=== PATIENT | female | born 1985 | race Caucasian/White ===

== ENCOUNTER 2020-07-07 19:42 | Emergency (ER) | payer SELFPAY ==
[2020-07-07 19:52] VITALS: BP 140/84; PULSE 84; RESP 16; TEMP 36; O2SAT 100
--- NOTE | 2020-07-07 20:41 | ED.FEMALEGU ---
HPI - Female Genitourinary General Chief complaint: Urogenital-Female Stated complaint: Left flank pain Time Seen by Provider: 07/07/20 20:41 History of Present Illness HPI Narrative: Left low back pain radiating to LLQ since this morning. Mild. Achy. Associated with urinary frequency for the past few days. No dyuria, hematuria, nausea, vomiting, fever. Related Data Allergies Allergy/AdvReac Type Severity Reaction Status Date / Time No Known Allergies Allergy Verified 07/07/20 22:19 Review of Systems Review of Systems: All systems reviewed & are unremarkable except as noted in HPI and below Exam Const: General: no acute distress and alert Orientation/consciousness: patient oriented x3 HENMT: Head: normal to inspection Neck: Neck: normal visual inspection Resp: Effort & Inspection: normal respiratory effort Auscultation: clear to auscultation bilaterally Cardio: Rate: regular rate Rhythm: regular rhythm GI: Inspection: non-distended GI Palp: Yes Soft to palpation and No Tenderness to palpation present (GI) Back/Spine/Pelvis: Back: no CVA tenderness Skin: General skin exam: normal color Neuro: General: patient oriented x3 Speech: normal speech Extrem: General: normal to inspection Course Vital Signs Vital signs: Vital Signs Temperature 36.0 C L 07/07/20 19:52 Pulse Rate 84 07/07/20 19:52 Respiratory Rate 16 07/07/20 19:52 Blood Pressure 140/84 07/07/20 19:52 Pulse Oximetry 100 07/07/20 19:52 Temperature 36.0 C L 07/07/20 19:52 Pulse Rate 68 07/07/20 22:22 Respiratory Rate 14 07/07/20 22:22 Blood Pressure 125/88 07/07/20 22:22 Pulse Oximetry 97 07/07/20 22:22 MDM - Female Genitourinary Differential Diagnosis Differential diagnosis: Likely urinary tract infection Lab Data Attestation: I reviewed the patient's lab results. Result diagrams: 07/07/20 21:13 Labs: Lab Results 07/07/20 07/07/20 Range/Units 21:13 21:13 WBC 8.8 (4.5-10.0) K/mm3 RBC 3.89 L (4.2-5.4) M/mm3 Hgb 11.6 L (12.0-15.0) g/dL Hct 35.4 L (37.0-47.0) % MCV 91.0 (80-100) fl MCH 29.8 (26-34) pg MCHC 32.8 (32-36) g/dl RDW 13.6 (11.5-14.5) % Plt Count 320 (150-375) k/mm3 MPV 11.6 H (7.4-10.4) fl Immature Gran % (Auto) 0.3 (0-0.5) % Neut % (Auto) 60.4 (45.5-73.1) % Lymph % (Auto) 31.2 (18.3-44.2) % [place] % (Auto) 5.9 (2.6-8.5) % Eos % (Auto) 1.4 (0-4.4) % Baso % (Auto) 0.8 (0.2-1.2) % Lymph # (Auto) 2.73 (0.9-3.2) K/mm3 [place] # (Auto) 0.5 (0.1-0.6) K/mm3 Eos # (Auto) 0.1 (0-0.3) K/mm3 Baso # (Auto) 0.1 (0.0-0.1) K/mm3 Abs Immat Gran (auto) 0.03 (0.00-0.031) K/mm3 Absolute Neuts (auto) 5.3 (1.3-6.7) K/mm3 Absolute Nucleated RBC 0.0 (0.0-0.012) K/mm3 Nucleated RBC % 0.0 (0.0-0.2) % Urine Color Straw (Yellow) Urine Appearance Clear (Clear) Urine pH 6.0 (5.0-9.0) Ur Specific [place] 1.004 (1.001-1.035) Urine Protein Negative (Negative) mg/dL Urine Glucose (UA) Negative (Negative) mg/dL Urine Ketones Negative (Negative) mg/dL Ur Blood (Man) 2+ H (Negative) Urine Nitrate Negative (Negative) Urine Bilirubin Negative (Negative) Urine Urobilinogen Negative (<2.0) mg/dL Leukocyte Esterase Rfl 3+ H (Negative) DOLORES/UL Urine RBC 3-5 H (0-2) /hpf Urine WBC 7-9 H /hpf Ur Squamous Epith Cells Moderate H (Few) /hpf Ur Transition Epith Cell Rare (None Seen) /hpf Discharge Plan Discharge Clinical Impression: Urinary tract infection Patient Disposition: Home, Self-Care Condition: Stable Instructions: Antibiotic Form, Urinary Tract Infection in Women (ED) Prescriptions: New nitrofurantoin monohyd/m-cryst [Macrobid] 100 mg capsule 100 mg PO Q12H 5 Days Qty: 10 RF: 0 Follow-up/Referrals: PHYSICIAN,REVISING CLERK [Primary Care Provider] - Vivek Ruano MD [Physician] -
[2020-07-07 21:21] LABS: Basophils Absolute Auto 0.1 K/mm3 (0.0-0.1); Basophils Percent Auto 0.8 % (0.2-1.2); Eosinophils Absolute Auto 0.1 K/mm3 (0-0.3); Eosinophils Percent Auto 1.4 % (0-4.4); Hematocrit 35.4 % (37.0-47.0); Hemoglobin 11.6 g/dL (12.0-15.0); Immature Granulocyte Absolute 0.03 K/mm3 (0.00-0.031); Immature Granulocyte Percent A 0.3 % (0-0.5); Lymphocytes Absolute Auto 2.73 K/mm3 (0.9-3.2); Lymphocytes Percent Auto 31.2 % (18.3-44.2); Mean Corpuscular HGB Conc 32.8 g/dl (32-36); Mean Corpuscular Hemoglobin 29.8 pg (26-34); Mean Platelet Volume 11.6 fl (7.4-10.4); Monocytes Absolute Auto 0.5 K/mm3 (0.1-0.6); Monocytes Percent Auto 5.9 % (2.6-8.5); Neutrophils Absolute Auto 5.3 K/mm3 (1.3-6.7); Neutrophils Percent Auto 60.4 % (45.5-73.1); Platelet Count Result 320 k/mm3 (150-375); Red Blood Count 3.89 M/mm3 (4.2-5.4); Red Cell Distribution Width 13.6 % (11.5-14.5); White Blood Count 8.8 K/mm3 (4.5-10.0)
[2020-07-07 21:25] LABS: Add Urine Microscopic? YES; Appearance Urine Clear (Clear); Bilirubin Urine Negative (Negative); Blood Urine 2+ (Negative); Color Urine Straw (Yellow); Glucose Urine UA Negative (Negative); Ketones Urine Negative (Negative); Leukocyte Esterase Ur 3+ LEU/UL (Negative); Nitrate Urine Negative (Negative); Protein Urine Negative (Negative); Squamous Epithelial Cell Urine Moderate /hpf (Few); Transitional Epi Cells Urine Rare /hpf (None Seen); Urobilinogen Urine Negative mg/dL (<2.0)
[2020-07-07 21:27] LABS: Specific Grav Ur 1.004 (1.001-1.035)
[2020-07-07] MEDS: NITROFURANTOIN MONOHYD MACROCR 100 MG CAP PO (22:20)
[2020-07-07 22:22] VITALS: BP 125/88; PULSE 68; RESP 14; O2SAT 97
== END 2020-07-07 22:27 | disposition home or self-care (01) ==
LOC: ANHED 22:11
PROVIDERS: Emergency Provider Emergency Medicine
DX: N39.0 Urinary tract infection, site not specified (principal)
CPT/HCPCS: 36415; 81001; 81025; 85025; 87077; 87086; 87088; 99283; A9270

== ENCOUNTER 2020-10-23 08:11 | Emergency (ER) | payer BC, SELFPAY ==
[2020-10-23 08:23] VITALS: BP 141/98; PULSE 91; RESP 16; TEMP 36.3; O2SAT 99
--- NOTE | 2020-10-23 08:38 | ED.URI ---
HPI - URI/Sore Throat General Chief Complaint: Upper Respiratory Infection Stated Complaint: cough/ear pain/sore throat Source: patient, RN notes reviewed and old records reviewed Mode of arrival: ambulatory Limitations: no limitations History of Present Illness HPI Narrative: 35-year-old female who presents to [facility] with complaints of cough, sore throat, earache, and nasal drainage with pressure to her sinus region for the past 3 days. Patient denies any shortness of breath but states that she has had such a cough that she felt like she was wheezing so she used her fathers inhaler which did seem to help. 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 Patient reports that her throat is sore especially with swallowing and she has had some clear nasal drainage with pressure to maxillary sinus region and pressure to her ear, denies any fevers chills or sweats or any body aches. Reports that she had been on Bystolic in the past for her blood pressure and diagnosis of pulmonary hypertension but she has been of this medication for some time with her blood pressure being normal, is elevated today at time of triage. MD elicited complaint: cough, sore throat, rhinorrhea and nasal congestion Treatments prior to arrival: cold medicine Related Data Home Medications Medication Instructions Recorded Confirmed No Home Medications 10/23/20 10/23/20 Allergies Allergy/AdvReac Type Severity Reaction Status Date / Time No Known Allergies Allergy Verified 07/07/20 22:19 Review of Systems Review of Systems: CONSTITUTIONAL: Denies fever, chills, or sweats. EYES: Denies visual changes, redness, or discharge. ENT: positive rhinorrhea, congestion, sore throat, positive for pressure to bilateral ears CARDIOVASCULAR: Denies chest pain, palpitations, or edema. RESPIRATORY: Positive cough no dyspnea, states noted some wheezing last night GASTROINTESTINAL: Denies abdominal pain, nausea, vomiting, or diarrhea. GENITOURINARY: Denies dysuria or hematuria. SKIN: Denies rash or itching. MUSCULOSKELETAL: Denies back pain, joint pain, or myalgia. NEUROLOGIC: Denies headache, numbness, or weakness. PSYCHIATRIC: Denies anxiety or depression. All systems reviewed & are unremarkable except as noted in HPI and below [facility] Past Medical History Medical History (Updated 10/23/20 @ 09:08 by Asmita Rollins NP) Pulmonary hypertension Surgical History Surgical History (Updated 10/23/20 @ 09:01 by Asmita Rollins NP) H/O tubal ligation History of hip surgery right Family History Family History (Updated 10/23/20 @ 09:02 by Asmita Rollins NP) Father COPD (chronic obstructive pulmonary disease) Heart disease Hypertension Social History Social History (Updated 10/23/20 @ 09:03 by Asmita Rollins NP) Smoking packs per day: 0.5 Smoking cigarettes per day: 10.0 Years smoked: 12 Smoking pack-years: 6.00 Smoking status: Former smoker Tobacco type: cigarettes and e-cigarettes/vaping Additional smoking assessment comments: quit cigarettes 6 months ago now vapes Alcohol use details: denies use Substance use type: does not use Living arrangements: with family Gender identity (if verbalized by the patient): Female Comments At time of signature, agree with nursing past medical, surgical, social and family history. There is no relevant family history pertinent to the presenting complaint Exam Narrative: GENERAL: Well-appearing, well-nourished, and in no acute distress. HEAD: Normocephalic, atraumatic. EYES: PERRLA and EOMI. ENT: Nares red swollen with clear rhinorrhea no epistaxis, sinus pressure stated. Mucous membranes moist.TM's normal with good light reflex, throat red with no lesion exudates or tonsil enlargement. post nasal drainage noted to back of throat. NE
[2020-10-25 18:57] LABS: SARS-CoV-2 RNA PCR Negative
== END 2020-10-23 09:14 | disposition home or self-care (01) ==
PROVIDERS: Emergency Provider Registered Nurse
DX: J06.9 Acute upper respiratory infection, unspecified (principal); R05 Cough; Z20.822 Contact with and (suspected) exposure to COVID-19
CPT/HCPCS: 87081; 87426; 87880; 99213; C9803; G0463; U0003; U0005

== ENCOUNTER 2022-01-14 11:59 | Emergency (ER) | payer BC, SELFPAY ==
[2022-01-14 12:07] VITALS: BP 137/85; PULSE 72; RESP 16; TEMP 36.2; O2SAT 100
--- NOTE | 2022-01-14 14:15 | ED.URI ---
HPI - URI/Sore Throat General Chief Complaint: Upper Respiratory Infection Stated Complaint: cough Time Seen by Provider: 01/14/22 14:15 Source: patient, RN notes reviewed and old records reviewed Mode of arrival: ambulatory Limitations: no limitations History of Present Illness HPI Narrative: 36-year-old female who presents to [facility] 6 day history of sore throat, body aches, which initially started last . Patient states over the weekend her symptoms seemed to get a little better and then now they have proceeded to increase with cough and congestion. Patient reports that she has taken DayQuil and Excedrin for her symptoms. MD elicited complaint: cough and sore throat Pertinent past history: asthma Onset (ago): day(s) (6) Treatments prior to arrival: other (Excedrin, DayQuil) Related Data Allergies Allergy/AdvReac Type Severity Reaction Status Date / Time No Known Allergies Allergy Verified 01/14/22 12:38 Review of Systems Review of Systems: CONSTITUTIONAL: Reports malaise, no chills, sweats, or known fever. EYES: Denies visual changes, redness, or discharge. ENT: Reports rhinorrhea, congestion, sinus pain, no otalgia positive for sore throat. CARDIOVASCULAR: Denies chest pain, palpitations, or edema. RESPIRATORY: Reports cough.? Denies dyspnea. GASTROINTESTINAL: Denies abdominal pain, nausea, vomiting, diarrhea SKIN: Denies rash or itching. MUSCULOSKELETAL: Reports myalgia. NEUROLOGIC: Denies headache. All systems reviewed & are unremarkable except as noted in HPI and below PMFSH Past Medical History Medical History (Updated 01/18/22 @ 11:45 by Asmita Rollins NP) Achilles tendinitis of left lower extremity Asthma Calcaneus fracture, left Pulmonary hypertension Surgical History Surgical History H/O tubal ligation History of hip surgery right Family History Family History (Updated 03/06/21 @ 15:02 by Fani Gan) Father COPD (chronic obstructive pulmonary disease) Heart disease Hypertension Other Asthma Social History Social History (Updated 03/06/21 @ 15:03 by Fani Gan) Smoking packs per day: 0.5 Smoking cigarettes per day: 10.0 Years smoked: 12 Smoking pack-years: 6.00 Smoking status: Current every day smoker (vaping) Tobacco type: e-cigarettes/vaping Additional smoking assessment comments: quit cigarettes 6 months ago now vapes Alcohol use details: denies use Substance use: never Substance use type: does not use Additional occupation/education comments: [employer] at [employer] Gender identity (if verbalized by the patient): Female Comments At time of signature, agree with nursing past medical, surgical, social and family history. There is no relevant family history pertinent to the presenting complaint Exam Narrative: GENERAL: Well-appearing, well-nourished, and in no acute distress. HEAD: Normocephalic EYES: PERRLA, conjunctivae clear ENT: Nares clear, turbinates edematous and erythematous, clear to light yellow discharge. Mucous membranes moist. TM pearly lal with dull light reflex bilaterally; no tragal tenderness. Oropharynx erythematous without lesions. Tonsils not enlarged and without exudate, no drooling, no hoarseness, no trismus, uvula midline. NECK: Supple. No lymphadenopathy CHEST: Clear to auscultation, breath sounds equal. No wheezing, rhonchi, rales, or stridor. No respiratory distress, speaks in full sentences. productive cough, SAO2 100% on room air HEART: Regular rate and rhythm. No murmur heard. SKIN: Warm, dry, no rash. NEURO: Alert and oriented x3. PSYCH: Normal mood and affect Course Course Emergency Course: Patient is aware of diagnosis, understands and agrees to treatment plan.? Anticipatory guidance given.? Patient agrees to follow-up as directed and is aware of reasons to seek care at the emergency department. [facility]
== END 2022-01-14 14:35 | disposition home or self-care (01) ==
PROVIDERS: Emergency Provider Registered Nurse
DX: J32.9 Chronic sinusitis, unspecified (principal); R05.1 Acute cough; F17.290 Nicotine dependence, other tobacco product, uncomplicated; J45.909 Unspecified asthma, uncomplicated; I27.20 Pulmonary hypertension, unspecified
CPT/HCPCS: 99213; G0463

== ENCOUNTER 2022-03-13 11:40 | Emergency (ER) | payer BC, SELFPAY ==
--- NOTE | ~2022-03-13 | XR_ITS ---
Clinical Indication: Chest pain, Covid 19 positive PA and lateral views of the chest: Comparison: None Findings: The lungs are clear, without evidence of focal consolidation or pleural effusion. Cardiome diastinal silhouette is within normal limits. Bones and soft tissues are unremarkable. Impression: Normal chest. Reviewed, dictated and finalized at [facility]. 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
[2022-03-13 11:51] VITALS: BP 126/88; PULSE 89; RESP 18; TEMP 36.4; O2SAT 100
[2022-03-13 11:52] VITALS: BP 126/88; PULSE 89; RESP 18; TEMP 36.4; O2SAT 100
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
--- NOTE | 2022-04-28 10:33 | ED.GENADULT ---
HPI - General Adult General Chief complaint: Upper Respiratory Infection Stated complaint: Headache/Chest Pain /Sore Throat Time Seen by Provider: 03/13/22 12:09 Source: patient, RN notes reviewed and old records reviewed Mode of arrival: ambulatory Limitations: no limitations Related Data Allergies Allergy/AdvReac Type Severity Reaction Status Date / Time No Known Allergies Allergy Verified 03/13/22 11:51 [facility] Past Medical History Medical History Achilles tendinitis of left lower extremity Asthma Calcaneus fracture, left Pulmonary hypertension Surgical History Surgical History H/O tubal ligation History of hip surgery right Family History Family History Father COPD (chronic obstructive pulmonary disease) Heart disease Hypertension Other Asthma Social History Social History Smoking packs per day: 0.5 Smoking cigarettes per day: 10.0 Years smoked: 12 Smoking pack-years: 6.00 Smoking status: Current every day smoker (vaping) Tobacco type: e-cigarettes/vaping Additional smoking assessment comments: quit cigarettes 6 months ago now vapes Alcohol use details: denies use Substance use: never Substance use type: does not use Living arrangements: with family Occupation/Education: occupation 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 [employer] Gender identity (if verbalized by the patient): Female Course Vital Signs Vital signs: Vital Signs Temperature 97.5 F L 03/13/22 11:51 Pulse Rate 89 03/13/22 11:51 Respiratory Rate 18 03/13/22 11:51 Blood Pressure 126/88 03/13/22 11:51 Pulse Oximetry 100 03/13/22 11:51 Oxygen Delivery Room Air 03/13/22 11:51 Temperature 97.5 F L 03/13/22 11:52 Pulse Rate 89 03/13/22 11:52 Respiratory Rate 18 03/13/22 11:52 Blood Pressure 126/88 03/13/22 11:52 Pulse Oximetry 100 03/13/22 11:52 Oxygen Delivery Room Air 03/13/22 11:52 Medical Decision Making Vital Signs Vital Signs: Vital Signs Temperature 97.5 F L 03/13/22 11:51 Pulse Rate 89 03/13/22 11:51 Respiratory Rate 18 03/13/22 11:51 Blood Pressure 126/88 03/13/22 11:51 Pulse Oximetry 100 03/13/22 11:51 Oxygen Delivery Room Air 03/13/22 11:51 Temperature 97.5 F L 03/13/22 11:52 Pulse Rate 89 03/13/22 11:52 Respiratory Rate 18 03/13/22 11:52 Blood Pressure 126/88 03/13/22 11:52 Pulse Oximetry 100 03/13/22 11:52 Oxygen Delivery Room Air 03/13/22 11:52 Lab Data Labs: Lab Results 03/13/22 Range/Units 12:00 POC SARS CoV-2 Ag Positive (Negative) Discharge Plan Discharge Clinical Impression: COVID-19 Patient Disposition: Home, Self-Care Condition: Stable Instructions: Antibiotic Form, How to Recover from COVID-19 at Home (ED) Additional Instructions: Increase fluids especially juices and water [id number] cough and cold medicine of your choice for your symptoms Tylenol or ibuprofen for any fever pain Zyrtec Claritin or Yennifer daily may include Sudafed is decongestant heat to the face 20-30 minutes 4-6 times a day for pain Salt water gargles, throat lozenges or throat sprays as desired If your symptoms persist, change or worsen significantly before you can contact your personal physician then please, without delay, go to the emergency department for further evaluation. Follow-up with PCP in 7-10 days or sooner if needed Follow up with PCP soon in regards to your blood pressure which is elevated above threshold for referral. Blood pressure above 120/80 may indicate pre-hypertension. Blood pressure minimal elevation 126/88. must quarantine for 5 days from time of symptoms and follow CDC quidelines COVID-19 DISCHARGE The following recommendati
== END 2022-03-13 12:54 | disposition home or self-care (01) ==
PROVIDERS: Emergency Provider Registered Nurse
DX: U07.1 COVID-19 (principal); F17.290 Nicotine dependence, other tobacco product, uncomplicated; J45.909 Unspecified asthma, uncomplicated; I27.20 Pulmonary hypertension, unspecified
CPT/HCPCS: 71046; 87081; 87426; 87804; 87880; 99213; C9803; G0463

== ENCOUNTER 2022-04-28 10:26 | Emergency (ER) | payer BC, SELFPAY ==
[2022-04-28 10:32] VITALS: BP 149/94; PULSE 80; RESP 14; TEMP 37.2; O2SAT 100
--- NOTE | 2022-04-28 10:52 | ED.CHESTPAIN ---
HPI - Chest Pain General Chief Complaint: Chest Pain Stated Complaint: cp Time Seen by Provider: 04/28/22 10:30 Source: patient, RN notes reviewed and old records reviewed Mode of arrival: ambulatory Limitations: no limitations History of Present Illness HPI narrative: 37-year-old female presents to the [facility] with complaints of left-sided chest pain, pressure, shortness of breath and nausea. Patient states it started as back pain last night, radiated into and localized into her left chest today. Reports numbness in her left arm as well as tingling. Pain is not reproducible MD complaint: chest pain Related Data Home Medications Medication Instructions Recorded Confirmed No Home Medications 04/28/22 04/28/22 Allergies Allergy/AdvReac Type Severity Reaction Status Date / Time No Known Allergies Allergy Verified 04/28/22 10:47 Review of Systems Review of Systems: All systems reviewed & are unremarkable except as noted in HPI and below Constitutional: Constitutional: Reports no additional constitutional complaints Eyes: Eyes: Reports no additional eye complaints ENT: Reports system reviewed and no additional complaints, except as documented Cardiovascular: Cardiovascular: Reports as per HPI, Reports chest pain, Reports chest pain at rest, Reports chest pain with activity and Reports dyspnea Respiratory: Respiratory: Reports no additional respiratory complaints, Denies chest congestion, Denies cough and Denies dyspnea Gastrointestinal: Gastrointestinal: Reports as per HPI, Denies abdominal pain, Reports nausea and Denies vomiting Musculoskeletal: Musculoskeletal: Reports no additional musculoskeletal complaints Integumentary/Breasts: Skin/Breast: Reports system reviewed and no additional complaints, except as docu Neurologic: Reports system reviewed and no additional complaints, except as documented Psychiatric: Psychiatric: Reports no additional psychiatric complaints Allergic/Immunologic: Allergic/Immunologic: Reports no additional allergic/immunologic complaints [facility] Past Medical History Medical History Achilles tendinitis of left lower extremity Asthma Calcaneus fracture, left Pulmonary hypertension Surgical History Surgical History H/O tubal ligation History of hip surgery right Family History Family History Father COPD (chronic obstructive pulmonary disease) Heart disease Hypertension Other Asthma Social History Social History Smoking packs per day: 0.5 Smoking cigarettes per day: 10.0 Years smoked: 12 Smoking pack-years: 6.00 Smoking status: Current every day smoker (vaping) Tobacco type: e-cigarettes/vaping Additional smoking assessment comments: quit cigarettes 6 months ago now vapes Alcohol use details: denies use Substance use: never Substance use type: does not use Living arrangements: with family Occupation/Education: occupation 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 There is no relevant family history pertinent to the patient complaint. Exam Const: General: cooperative, healthy appearing, comfortable, no acute distress, well developed, alert and well nourished Nutritional Appearance: well nourished Orientation/consciousness: patient oriented x3 Limitations: no limitations HENMT: Head: normal to inspection Ears: hearing grossly normal bilaterally and external ears normal Face/Nose/Sinus: Normal external nose present, Normal nares present, Normal nasal mucous membranes and turbinates present and normal facial exam Fac
--- NOTE | 2022-04-28 12:26 | ECG_ITS ---
Measurements Intervals [place] Rate: 81 P: 65 OK: 93 QRS: 38 QRSD: 82 T: 18 QT: 351 QTc: 409 Interpretive Statements SINUS RHYTHM WITH SINUS ARRHYTHMIA WITH SHORT OK INTERVAL POSSIBLE LEFT ATRIAL ENLARGEMENT BASELINE ARTIFACT- III, V1, V4 BORDERLINE ECG NO PREVIOUS ECG AVAILABLE FOR COMPARISON Electronically Signed On 04-28-2022 12:50:12 CDT by Silvino Sanchez D.O.
== END 2022-04-28 10:55 | disposition home or self-care (01) ==
PROVIDERS: Emergency Provider Nurse Practitioner
DX: R07.9 Chest pain, unspecified (principal); R06.02 Shortness of breath; F17.290 Nicotine dependence, other tobacco product, uncomplicated; J45.909 Unspecified asthma, uncomplicated; I27.20 Pulmonary hypertension, unspecified
CPT/HCPCS: 93005; 99213; G0463

== ENCOUNTER 2023-02-16 12:06 | Emergency (ER) | payer BC, SELFPAY ==
--- NOTE | 2023-02-16 12:14 | ED.URI ---
HPI - URI/Sore Throat General Chief Complaint: Upper Respiratory Infection Stated Complaint: Sore Throat/SOB Time Seen by Provider: 02/16/23 12:14 Source: patient Mode of arrival: ambulatory Limitations: no limitations History of Present Illness HPI Narrative: Patient is a 37-year-old female who presents with 4 days of cough, sore throat, congestion. Patient states her chest wall hurts when having coughing fits. Denies any fever, chills, nausea, vomiting, diarrhea. Has history of asthma as a child. Recently exposed to RSV. Related Data Allergies Allergy/AdvReac Type Severity Reaction Status Date / Time No Known Allergies Allergy Verified 02/16/23 13:15 Review of Systems Review of Systems: All systems reviewed & are unremarkable except as noted in HPI and below Constitutional: Constitutional: Denies body ache(s), Denies chills, Denies fatigue, Denies fever(s), Denies headache(s), Denies malaise and Denies weakness Eyes: Eyes: Denies blurry vision, Denies itchy eyes and Denies loss of vision ENT: Denies otalgia, Denies headache(s), Reports nasal congestion, Denies sinus pain and Denies sore throat Cardiovascular: Cardiovascular: Denies chest pain, Denies irregular heart rhythm and Denies dyspnea Respiratory: Respiratory: Reports cough and Denies dyspnea Gastrointestinal: Gastrointestinal: Denies abdominal pain, Denies diarrhea, Denies nausea and Denies vomiting Musculoskeletal: Musculoskeletal: Denies back pain, Denies myalgias and Denies arthralgias Integumentary/Breasts: Skin/Breast: Denies pruritus and Denies rash Neurologic: Denies headache(s), Denies loss of vision and Denies weakness Psychiatric: Psychiatric: Reports no additional psychiatric complaints Endocrine: Endocrine: Denies fatigue Allergic/Immunologic: Allergic/Immunologic: Denies itchy eyes PMFSH Past Medical History Medical History Achilles tendinitis of left lower extremity Asthma Calcaneus fracture, left Pulmonary hypertension Surgical History Surgical History H/O tubal ligation History of hip surgery right Family History Family History Father COPD (chronic obstructive pulmonary disease) Heart disease Hypertension Other Asthma Social History Social History Smoking packs per day: 0.5 Smoking cigarettes per day: 10.0 Years smoked: 12 Smoking pack-years: 6.00 Smoking status: Current every day smoker (vaping) Tobacco type: e-cigarettes/vaping Additional smoking assessment comments: quit cigarettes 6 months ago now vapes Alcohol use details: denies use Substance use: never Substance use type: does not use Living arrangements: with family Occupation/Education: occupation Additional occupation/education comments: [employer] 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 There is no relevant family history pertinent to the presenting complaint. Exam Const: General: cooperative, healthy appearing, comfortable, no acute distress and well nourished Nutritional Appearance: well nourished Orientation/consciousness: patient oriented x3 Limitations: no limitations HENMT: Head: normal to inspection, normocephalic and atraumatic Ears: hearing grossly normal bilaterally, external ears normal, TM's normal bilaterally, EAC's normal and no periauricular adenopathy Face/Nose/Sinus: Normal external nose present, Abnormal mucous membranes and turbinates present erythematous bilateral and diffuse, normal facial exam, sinuses nontender and face symmetric Face and sinus: normal facial exam, sinuses nontender and face symmetric Mouth: Yes Normal oral and palatal mucosa present, Ye
[2023-02-16 12:33] VITALS: BP 130/85; PULSE 69; RESP 16; TEMP 36.7; O2SAT 99
== END 2023-02-16 13:21 | disposition home or self-care (01) ==
PROVIDERS: Emergency Provider Nurse Practitioner Family; PCP Nurse Practitioner Family
DX: J06.9 Acute upper respiratory infection, unspecified (principal); F17.210 Nicotine dependence, cigarettes, uncomplicated; Z20.822 Contact with and (suspected) exposure to COVID-19
CPT/HCPCS: 87081; 87426; 87804; 87880; 99213; C9803; G0463

== ENCOUNTER 2023-04-22 11:20 | Emergency (ER) | payer BC, SELFPAY ==
[2023-04-22 11:51] VITALS: BP 116/67; PULSE 75; RESP 18; TEMP 36.6; O2SAT 100
--- NOTE | 2023-04-22 12:24 | ED.URI ---
HPI - URI/Sore Throat General Chief Complaint: Upper Respiratory Infection Stated Complaint: Sinus/Bodyaches Source: patient and RN notes reviewed Mode of arrival: ambulatory Limitations: no limitations History of Present Illness HPI Narrative: 38-year-old female presented for complaint of sore throat, headache, body aches, sinus pressure/congestion, cough, fever/chills. onset yesterday. Reports painful cough and green sputum. Taking Mucinex for symptoms. Denies sob, wheezing, n/v/d. Tested negative for COVID yesterday. MD elicited complaint: cough Related Data Allergies Allergy/AdvReac Type Severity Reaction Status Date / Time No Known Allergies Allergy Verified 04/22/23 11:36 Review of Systems Review of Systems: CONSTITUTIONAL: Endorses malaise, chills, sweats, fever EYES: Denies visual changes, redness, or discharge ENT: Reports rhinorrhea, congestion, sinus pain, otalgia, sore throat CARDIOVASCULAR: Denies chest pain, palpitations, edema RESPIRATORY: Reports cough, post nasal drainage. Denies dyspnea GASTROINTESTINAL: Denies abdominal pain, nausea, vomiting, diarrhea SKIN: Denies rash or itching MUSCULOSKELETAL: Endorses myalgia PMFSH Past Medical History Medical History Achilles tendinitis of left lower extremity Asthma Calcaneus fracture, left Pulmonary hypertension Surgical History Surgical History H/O tubal ligation History of hip surgery right Family History Family History Father COPD (chronic obstructive pulmonary disease) Heart disease Hypertension Other Asthma Social History Social History Smoking packs per day: 0.5 Smoking cigarettes per day: 10.0 Years smoked: 12 Smoking pack-years: 6.00 Smoking status: Current every day smoker (vaping) Tobacco type: e-cigarettes/vaping Additional smoking assessment comments: quit cigarettes 6 months ago now vapes Alcohol use details: denies use Substance use: never Substance use type: does not use Living arrangements: with family Occupation/Education: occupation Additional occupation/education comments: [employer] at [employer] Gender identity (if verbalized by the patient): Female Exam Narrative: GENERAL: Ill-appearing, nontoxic no acute distress. HEAD: Normocephalic EYES: PERRLA, conjunctivae clear ENT: Mucous membranes moist. TMs pearly lal with dull light reflex bilaterally; no tragal tenderness. Oropharynx not erythematous without lesions or exudate, no drooling, no hoarseness, no trismus, uvula midline. No tripod positioning, muffled voice, soft palate or pharyngeal wall bulging NECK: Supple. No lymphadenopathy CHEST: Clear to auscultation, breath sounds equal. No wheezing, rhonchi, rales, or stridor. No respiratory distress, speaks in full sentences. HEART: Regular rate and rhythm. No murmur heard. SKIN: Warm, dry, no rash. NEURO: Alert and oriented x3. PSYCH: Normal mood and affect Course Course Emergency Course: Patient is aware of diagnosis, understands and agrees to treatment plan. Anticipatory guidance given. Patient agrees to follow-up as directed and is aware of reasons to seek care at the emergency department. Portions of this record may have been created with voice recognition software Level of Care: Express Care Visit Vital Signs Vital signs: Vital Signs Oxygen Delivery Room Air 04/22/23 11:50 Temperature 97.8 F 04/22/23 11:51 Pulse Rate 75 04/22/23 11:51 Respiratory Rate 18 04/22/23 11:51 Blood Pressure 116/67 04/22/23 11:51 Pulse Oximetry 100 04/22/23 11:51 Oxygen Delivery Room Air 04/22/23 11:51 reviewed MDM - URI/Sore Throat MDM Narrative Medical decision making narrative: Negative flu and strep reviewed with patient. Xavi
== END 2023-04-22 12:28 | disposition home or self-care (01) ==
PROVIDERS: Emergency Provider Nurse Practitioner Family; PCP Nurse Practitioner Family
DX: B34.9 Viral infection, unspecified (principal); F17.290 Nicotine dependence, other tobacco product, uncomplicated; J45.909 Unspecified asthma, uncomplicated
CPT/HCPCS: 87081; 87804; 87880; 99213; G0463

== ENCOUNTER 2023-11-07 11:03 | Emergency (ER) | payer BC, SELFPAY ==
--- NOTE | ~2023-11-07 | XR_ITS ---
EXAMINATION: XR chest 2V DATE: 11/07/2023 12:04 INDICATION: Nonproductive cough. TECHNIQUE: Frontal and lateral views of the chest were obtained. COMPARISON: Chest 2 views 03/13/2022 FINDINGS: There is no pneumonia, pleural effusion, or pneumothorax. The heart size is normal. There i s an old healed right rib fracture. IMPRESSION: 1. No acute cardiopulmonary disease. Reviewed, dictated and finalized at location A.
[2023-11-07 11:14] VITALS: BP 133/83; PULSE 74; RESP 16; TEMP 37.1; O2SAT 100
[2023-11-07 11:19] VITALS: BP 133/83; PULSE 74; RESP 16; TEMP 37.1; O2SAT 100
--- NOTE | 2023-11-07 11:45 | ED.GENADULT ---
HPI - General Adult General Chief complaint: Upper Respiratory Infection Stated complaint: Sore Throat Source: patient Mode of arrival: ambulatory Limitations: no limitations History of Present Illness HPI narrative: Patient presents for evaluation of sick symptoms for last 4 days. Symptoms include sinus congestion, postnasal drainage, cough, mild shortness of breath, subjective hot flashes, nausea, diarrhea. Denies any vomiting or chills. She has taken Excedrin, ibuprofen, Mucinex, and some [id number] cough medication without considerable improvement thereafter. No recent sick contacts to her knowledge. She does vape. Related Data Allergies Allergy/AdvReac Type Severity Reaction Status Date / Time No Known Allergies Allergy Verified 11/07/23 11:14 Review of Systems Review of Systems: CONSTITUTIONAL: Reports hot flashes. Denies chills, or sweats. EYES: Denies visual changes, redness, or discharge. ENT: reports sinus congestion, postnasal drainage, sore throat. CARDIOVASCULAR: Denies chest pain, palpitations, or edema. RESPIRATORY: Reports cough and shortness of GASTROINTESTINAL: reports nausea, vomiting, diarrhea GENITOURINARY: Denies dysuria or hematuria. SKIN: Denies rash or itching. MUSCULOSKELETAL: Denies back pain, joint pain, or myalgia. NEUROLOGIC: Denies headache, numbness, dizziness, or weakness. PSYCHIATRIC: Denies anxiety or depression. [facility] Past Medical History Medical History Achilles tendinitis of left lower extremity Asthma Calcaneus fracture, left Pulmonary hypertension Surgical History Surgical History H/O tubal ligation History of hip surgery right Family History Family History Father COPD (chronic obstructive pulmonary disease) Heart disease Hypertension Other Asthma Social History Social History Smoking packs per day: 0.5 Smoking cigarettes per day: 10.0 Years smoked: 12 Smoking pack-years: 6.00 Smoking status: Current every day smoker (vaping) Tobacco type: e-cigarettes/vaping Additional smoking assessment comments: quit cigarettes 6 months ago now vapes Alcohol use details: denies use Substance use: never Substance use type: does not use Living arrangements: with family Occupation/Education: occupation Additional occupation/education comments: [employer] EX[employer] at [employer] Gender identity (if verbalized by the patient): Female Exam Narrative: GENERAL: Well-appearing, well-nourished, and in no acute distress. HEAD: Normocephalic, atraumatic. EYES: PERRLA and EOMI. ENT: Nares clear, no rhinorrhea or epistaxis. Mucous membranes moist. Oropharynx without tonsillar hypertrophy exudate or other lesions. Bilateral TMs pearly lal nonbulging NECK: Supple. No adenopathy or masses. No carotid bruits or JVD CHEST: Diminished lung sounds bilaterally. No adventitious lung sounds. HEART: Regular rate and rhythm. No murmur heard. Normal peripheral pulses. ABDOMEN: Soft, nontender, nondistended, normal active bowel sounds. EXTREMITIES: Normal range of motion. No edema. SKIN: Warm, dry, no rash. NEURO: No focal deficits. Alert and oriented x3. PSYCH: Normal mood and affect. Course Course Emergency Course: This is a 38-year-old female who presented for evaluation of sick symptoms. COVID and influenza negative. Chest x-ray normal. Exam is consistent with acute viral syndrome. Increase hydration. [id number] agents for symptom management. Advised on smoking cessation. Will dc with prednisone and albuterol. Follow up with primary provider. Go to the ER for worsening symptoms. Pt in agreement with plan of care. Level of Care: Express Care Visit Vital Signs Vital signs: Vital Signs Tem
[2023-11-07 11:48] LABS: EDCOVIDSCREEN Negative (Negative); EDINFLUASCREEN Negative (Negative); EDINFLUBSCREEN Negative (Negative); EDSTREPNEGPOS1 Negative (Negative)
== END 2023-11-07 12:34 | disposition home or self-care (01) ==
PROVIDERS: Emergency Provider Nurse Practitioner; PCP Nurse Practitioner Family
DX: J06.9 Acute upper respiratory infection, unspecified (principal); Z20.822 Contact with and (suspected) exposure to COVID-19; F17.290 Nicotine dependence, other tobacco product, uncomplicated; J45.909 Unspecified asthma, uncomplicated; I27.20 Pulmonary hypertension, unspecified
CPT/HCPCS: 71046; 87081; 87426; 87804; 87880; 99213; G0463

== ENCOUNTER → 2023-12-10 11:15 | Outpatient (CLI) | payer BC, SELFPAY ==
--- NOTE | ~2023-12-10 | XR_ITS ---
XR hip RT min 2V 12/10/2023 11:28 Indication: Right hip pain Procedure: 2 views right hip Comparison: No prior studies for comparison. Findings: No acute fracture, subluxation or dislocation. There is internal fixation of the right stephen pelvis with sideplate and multiple screws. There is a healed acetabular fracture. Impression: 1: No acute bone or joint abnormality. Reviewed, dictated and finalized at location B. Impression: 1: No acute bone or joint abnormality.
--- NOTE | ~2023-12-10 | XR_ITS ---
XR hip LT min 2V 12/10/2023 11:28 Indication: Left hip pain Procedure: 2 views left hip Comparison: No prior studies for comparison. Findings: There is anatomic alignment. No fracture, subluxation or dislocation. There is partially vi sualized hardware in the right hemipelvis.. Impression: 1: No acute bone or joint abnormality. Reviewed, dictated and finalized at location B. Impression: 1: No acute bone or joint abnormality.
== END ==
LOC: EXPCRAD 11:19
PROVIDERS: PCP Nurse Practitioner Family; Visit Provider Nurse Practitioner Family
DX: M25.552 Pain in left hip (principal); M25.551 Pain in right hip
CPT/HCPCS: 73502

== ENCOUNTER 2024-03-10 12:02 | Emergency (ER) | payer BC, SELFPAY ==
--- NOTE | ~2024-03-10 | XR_ITS ---
EXAMINATION: XR chest 2V DATE: 03/10/2024 12:39 INDICATION: 4 days of productive cough TECHNIQUE: PA and lateral views of the chest were obtained. COMPARISON: Chest radiograph dated 11/07/2023 FINDINGS: The lungs remain clear with no focal airspace opacities, pulmonary edema, pleural effusion or pneumot horax. The cardiomediastinal silhouette is normal. Old healed fracture deformities the right clavicle and posterior right second rib. IMPRESSION: 1. No acute cardiopulmonary disease. Reviewed, dictated and finalized at location A. [employer] COMM[employer]
--- NOTE | 2024-03-10 12:08 | ED.URI ---
HPI - URI/Sore Throat General Chief Complaint: Upper Respiratory Infection Stated Complaint: cough, something sitting on chest ,HX asthma Time Seen by Provider: 03/10/24 12:05 Source: patient Mode of arrival: ambulatory Limitations: no limitations History of Present Illness HPI Narrative: Patient is a 38-year-old female who presents with worsening cough the past 4 days and burning sensation in chest. Patient was diagnosed with influenza 02/21 and finished Tamiflu. Patient denies any fever, congestion, sore throat, ear pain, fever, chills, nausea, vomiting, diarrhea. Patient vapes daily. Patient has PCP appointment in 3 days. Related Data Home Medications ?Medication ?Instructions ?Recorded ?Confirmed ?Last Taken ?Type ergocalciferol (vitamin D2) 1,250 1,250 mcg PO WEEKLY 03/10/24 03/10/24 Unknown History mcg (50,000 unit) capsule Allergies Allergy/AdvReac Type Severity Reaction Status Date / Time No Known Allergies Allergy Verified 03/10/24 12:29 Review of Systems Review of Systems: All systems reviewed & are unremarkable except as noted in HPI and below Constitutional: Constitutional: Denies body ache(s), Denies chills, Denies fatigue, Denies fever(s), Denies headache(s), Denies malaise and Denies weakness Eyes: Eyes: Denies blurry vision, Denies itchy eyes and Denies loss of vision ENT: Denies otalgia, Denies headache(s), Denies nasal congestion, Denies sinus pain and Denies sore throat Cardiovascular: Cardiovascular: Denies chest pain, Denies irregular heart rhythm and Denies dyspnea Respiratory: Respiratory: Reports cough and Denies dyspnea Gastrointestinal: Gastrointestinal: Denies abdominal pain, Denies diarrhea, Denies nausea and Denies vomiting Musculoskeletal: Musculoskeletal: Denies back pain, Denies myalgias and Denies arthralgias Integumentary/Breasts: Skin/Breast: Denies pruritus and Denies rash Neurologic: Denies headache(s), Denies loss of vision and Denies weakness Psychiatric: Psychiatric: Reports no additional psychiatric complaints Endocrine: Endocrine: Denies fatigue Allergic/Immunologic: Allergic/Immunologic: Denies itchy eyes PMFSH Past Medical History Medical History Asthma Achilles tendinitis of left lower extremity Calcaneus fracture, left Pulmonary hypertension Surgical History Surgical History H/O tubal ligation History of hip surgery right Family History Family History Father COPD (chronic obstructive pulmonary disease) Heart disease Hypertension Other Asthma Social History Social History Smoking packs per day: 0.5 Smoking cigarettes per day: 10.0 Years smoked: 12 Smoking pack-years: 6.00 Smoking status: Current every day smoker (vaping) Tobacco type: e-cigarettes/vaping Additional smoking assessment comments: quit cigarettes 6 months ago now vapes Alcohol use details: denies use Substance use: never Substance use type: does not use Living arrangements: with family Occupation/Education: occupation 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 There is no relevant family history pertinent to the presenting complaint. Exam Const: General: cooperative, healthy appearing, comfortable, no acute distress and well nourished Nutritional Appearance: well nourished Orientation/consciousness: patient oriented x3 Limitations: no limitations HENMT: Head: normal to inspection, normocephalic and atraumatic Ears: hearing grossly normal bilaterally, external ears normal, TM's normal bilaterally, EAC's normal and no periauricular adenopathy Face/Nose/Sinus: Normal external nose present, Normal nasal mucous membranes and turbinates present, normal facial exam, sinuses nontender and face symmetric Face and sinus: normal facial exam, sinuses nontender and face symmetric Mouth: Yes Normal oral and palatal mucosa present, Yes lip normal, Yes tongue normal, Yes Normal salivary glands and ducts present, Yes oropharynx normal and Yes moist mucous membranes Teeth and gingiva: dentition normal Throat: posterior oropharynx normal, tonsils normal and uvula midline Eyes: General: appearance normal, both eyes and all related structures Alignment and Position: alignment normal and position normal Periorbital: periorbital findings normal Eyelids: eyelids normal Pupils: Equal, round and reactive pupils present Neck: Neck: normal visual inspection, full ROM, no lymphadenopathy and supple Chest: Chest palpation & inspection: normal inspection of the chest and normal palpation of entire chest wall Resp: Effort & Inspection: normal respiratory effort, able to speak in complete sentences and Actively coughing dry Auscultation: clear to auscultation bilaterally, no crackles, no rales, no rhonchi and no wheezes Cardio: Rate: regular rate Rhythm: regular rhythm Heart sounds: S1 normal heart sound present and S2 normal heart sound present GI: Inspection: normal to inspection Skin: General skin exam: normal color and no rashes or lesions noted Neuro: General: patient oriented x3 and moves all extremities Cranial nerves: Yes Equal, round and reactive pupils present Speech: normal speech Gait exam (Neuro): Normal gait present Extrem: General: normal to inspection, full ROM and no edema Psych: Appearance: grossly normal and well kempt Mental Status: mental status grossly normal Speech and movement: Normal speech and movement present Affect: normal affect Attitude: cooperative Thought process: Normal thought process present Course Course Emergency Course: Discharge instructions reviewed with patient, as well as provided in writing per nursing staff. The instructions also include specific and strict return/GO TO THE ER as well as f/u information. All questions have been answered, and the patient deny any further questions with discharge and discharge plan. Portions of this record may have been created with voice recognition software Level of Care: Express Care Visit Vital Signs Vital signs: Vital Signs Temperature 36.3 C L 03/10/24 12:14 Pulse Rate 91 03/10/24 12:14 Respiratory Rate 18 03/10/24 12:14 Blood Pressure 135/83 03/10/24 12:14 Pulse Oximetry 100 03/10/24 12:14 Oxygen Delivery Room Air 03/10/24 12:14 Temperature 36.3 C L 03/10/24 12:14 Pulse Rate 91 03/10/24 12:14 Respiratory Rate 18 03/10/24 12:14 Blood Pressure 135/83 03/10/24 12:14 Pulse Oximetry 100 03/10/24 12:14 Oxygen Delivery Room Air 03/10/24 12:14 Reviewed MDM - URI/Sore Throat MDM Narrative Medical decision making narrative: Discussed findings with patient. Patient is to keep PCP appointment on Wednesday. Pt well hydrated appearing, in no respiratory distress, hemodynamically stable. Recommend supportive care. The patient is stable at time of discharge the clinical impression was discussed and the patient was given the opportunity to ask questions, which were addressed as completely as possible given the information available at present. Anticipatory guidance and return to care precautions were discussed and the importance of primary care follow-up was stressed and encouraged. The patient voiced understanding of the plan, indications to return, and the need for follow-up. Differential diagnosis considered: Montero virus, strep pharyngitis, allergic rhinitis, upper respiratory tract infection, sinusitis, rhinosinusitis, nasopharyngitis. viral pharyngitis, otitis media, otitis externa, otitis effusion, foreign body, cerumen impaction, viral syndrome, and influenza.? Exam findings show no acute concerns or changes; patient is non-toxic appearing and is in no distress.? Patient is appropriate for outpatient treatment and follow-up.? Medical Records Attestation: I reviewed the patient's medical records. Imaging Data Radiologist's impression: EXAMINATION: XR chest 2V DATE: 03/10/2024 12:39 INDICATION: 4 days of productive cough TECHNIQUE: PA and lateral views of the chest were obtained. COMPARISON: Chest radiograph dated 11/07/2023 FINDINGS: The lungs remain clear with no focal airspace opacities, pulmonary edema, pleural effusion or pneumothorax. The cardiomediastinal silhouette is normal. Old healed fracture deformities the right clavicle and posterior right second rib. IMPRESSION: 1. No acute cardiopulmonary disease. Discharge Plan Discharge Clinical Impression: Acute purulent bronchitis Patient Disposition: Home, Self-Care Condition: Stable Instructions: Acute Bronchitis (ED) Additional Instructions: Take antibiotic as prescribed. Take steroids per package instruction. Use Tessalon Perles as needed for cough. Other symptomatic treatments include: -Alternate Tylenol and Motrin per package directions for fever or pain: Tylenol 650-1000mg by mouth every 4-6 hours. Do not exceed 4000mg in 24 hours. Advil (Ibuprofen) 600 mg by mouth every 6 hours. Do not exceed 2400mg in 24 hours. 8 AM: Tylenol 11 AM: Ibuprofen 2 PM: Tylenol 5 PM: Ibuprofen 8 PM: Tylenol 11 PM: Ibuprofen 2 AM: Tylenol 5 AM: Ibuprofen -Antihistamine medication such as Benadryl at night and Zyrtec/Claritin/Yennifer during the day can help improve symptoms. -Use Flonase twice a day for 5 days then daily to help reduce the inflammation and dry up your sinuses. -You can also use Sudafed or Mucinex. Be sure to drink plenty of water with these medications at least 8 ounces with every dose and it is important to drink 8 to 10 glasses of water per day. Water is a natural decongestant -Eat and drink things that are easy to swallow, like tea or soup, or popsicles. -Oral rinses such as: Salt water gargles and/or may use topical anesthetic (eg. Chloraseptic spray) or lozenges to relieve dryness or throat pain). -Frequent hand washing or hand airplane pilot helper is one of the best ways to prevent spread of infection. -Using a vaporizer or humidifier at night will also help thin secretions and help with coughing up phlegm. -Follow up with primary care provider in 3-5 days if condition is not improving - For new or worsening symptoms go directly to the nearest ER Patient Language: Maltese Prescriptions: New azithromycin 250 mg tablet See Rx Instructions .ROUTE .COMPLEX Qty: 6 0RF Rx Instructions: For 250 mg dose pack: take 500 mg today (day 1), then 250 mg for 4 days (days 2-5) benzonatate 100 mg capsule 100 mg PO BID PRN (Reason: cough) Qty: 14 0RF methylprednisolone [Medrol ([place])] 4 mg tablets,dose pack See Rx Instructions .ROUTE .COMPLEX Qty: 21 0RF Rx Instructions: orally per package directions No Action ergocalciferol (vitamin D2) 1,250 mcg (50,000 unit) capsule 1,250 mcg PO WEEKLY Follow-up/Referrals: Linda,AMY Webb [Primary Care Provider] - 3 Days Stand Alone Forms: Work/School Release IP Time of Disposition: 12:58
[2024-03-10 12:14] VITALS: BP 135/83; PULSE 91; RESP 18; TEMP 36.3; O2SAT 100
== END 2024-03-10 13:07 | disposition home or self-care (01) ==
PROVIDERS: Emergency Provider Nurse Practitioner Family; PCP Nurse Practitioner Family
DX: J20.9 Acute bronchitis, unspecified (principal); F17.290 Nicotine dependence, other tobacco product, uncomplicated
CPT/HCPCS: 71046; 99213; G0463

== ENCOUNTER 2024-11-11 18:02 | Emergency (ER) | payer SELFPAY ==
[2024-11-11 18:12] VITALS: BP 140/88; PULSE 74; RESP 18; TEMP 36.5; O2SAT 97
--- NOTE | 2024-11-11 18:15 | ED_ITS ---
HPI - General Adult General Chief complaint: Wound/Laceration Stated complaint: Left Foot Toe Pain Time Seen by Provider: 11/11/24 18:15 Source: patient, RN notes reviewed and old records reviewed Mode of arrival: ambulatory Limitations: no limitations History of Present Illness HPI narrative: 39 year old female who presents to [facility] with complaints of 1 week duration of swelling and redness to the left great toe along anterior nail bed with some whitish tissue area noted, no purulent drainage noted at this time but patient reports some purulent drainage noted yesterday. Patient reports that she has been soaking her toe in Epsom salt and warm water a couple of times daily for the past 2 days. Patient reports no injury to her toe or any known fevers. MD complaint: pain and swelling to the left great toe at the nail bed Onset (ago): week(s) (1) Location: left (left great toe and proximal nail bed, no purulent drainage noted at this time.) and lower extremity Severity scale (1-10): 8 Quality: other (throbbing) Treatments prior to arrival: other (has been soaking) Related Data Allergies Allergy/AdvReac Type Severity Reaction Status Date / Time No Known Allergies Allergy Verified 11/11/24 18:14 Review of Systems Review of Systems: CONSTITUTIONAL: Denies fever, chills, or sweats. CARDIOVASCULAR: Denies chest pain, palpitations, or edema. RESPIRATORY: Denies cough or dyspnea. GASTROINTESTINAL: Denies abdominal pain, nausea, vomiting SKIN: Reports redness and swelling with pain to the proximal area of left great toe nail bed., reports some purulent drainage, none noted at present time, whitish area of tissue noted at nail bed with some induration MUSCULOSKELETAL: Denies myalgia. NEUROLOGIC: Denies headache, numbness All systems reviewed & are unremarkable except as noted in HPI and below PMFSH Past Medical History Medical History Asthma Achilles tendinitis of left lower extremity Calcaneus fracture, left Pulmonary hypertension Surgical History Surgical History H/O tubal ligation History of hip surgery right Family History Family History Father COPD (chronic obstructive pulmonary disease) Heart disease Hypertension Other Asthma Social History Social History Smoking packs per day: 0.5 Smoking cigarettes per day: 10.0 Years smoked: 12 Smoking pack-years: 6.00 Smoking status: Current every day smoker (vaping) Tobacco type: e-cigarettes/vaping Additional smoking assessment comments: quit cigarettes 6 months ago now vapes Alcohol use details: denies use Substance use: never Substance use type: does not use Living arrangements: with family Occupation/Education: occupation 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 There is no relevant family history pertinent to the presenting complaint Exam Narrative: GENERAL: Well-appearing, well-nourished, and in no acute distress. HEAD: Normocephalic, atraumatic. EYES: PERRLA and EOMI. ENT: Nares clear, no rhinorrhea or epistaxis. Mucous membranes moist. NECK: Supple. no lymphadenopathy CHEST: Clear to auscultation. No respiratory distress.SAO2 97% on room air HEART: Regular rate and rhythm. No murmur heard. Normal peripheral pulses. ABDOMEN: Soft, nontender, nondistended, normal active bowel sounds. EXTREMITIES: Normal range of motion. No edema. SKIN: Warm, dry. Erythema, induration, tenderness, warmth to the proximal aspect of her left great toe nail bed with whitish tissue area, no present drainage noted, patient does report some purulent drainage. NEURO: No focal deficits. Alert and oriented x3. Course Course Emergency Course: Patient is aware of diagnosis, understands and agrees to treatment plan. Anticipatory guidance given. Patient agrees to follow-up as directed and is aware of reasons to seek care at the emergency department. Portions of this record may have been created with voice recognition software Level of Care: Express Care Visit Vital Signs Vital signs: Vital Signs Temperature 36.5 C 11/11/24 18:12 Pulse Rate 74 11/11/24 18:12 Respiratory Rate 18 11/11/24 18:12 Blood Pressure 140/88 11/11/24 18:12 Pulse Oximetry 97 11/11/24 18:12 Oxygen Delivery Room Air 11/11/24 18:12 Temperature 36.5 C 11/11/24 18:12 Pulse Rate 74 11/11/24 18:12 Respiratory Rate 18 11/11/24 18:12 Blood Pressure 140/88 11/11/24 18:12 Pulse Oximetry 97 11/11/24 18:12 Oxygen Delivery Room Air 11/11/24 18:12 Reviewed Medical Decision Making Differential Diagnosis Differential Diagnosis: swelling and pain of left great toe, paronychia left great toe, abscess nail bed, cellulitis Medical Records Medical records reviewed: Yes I reviewed the external patient's medical records. Vital Signs Vital Signs: Vital Signs Temperature 36.5 C 11/11/24 18:12 Pulse Rate 74 11/11/24 18:12 Respiratory Rate 18 11/11/24 18:12 Blood Pressure 140/88 11/11/24 18:12 Pulse Oximetry 97 11/11/24 18:12 Oxygen Delivery Room Air 11/11/24 18:12 Temperature 36.5 C 11/11/24 18:12 Pulse Rate 74 11/11/24 18:12 Respiratory Rate 18 11/11/24 18:12 Blood Pressure 140/88 11/11/24 18:12 Pulse Oximetry 97 11/11/24 18:12 Oxygen Delivery Room Air 11/11/24 18:12 reviewed Critical Care Time Critical Care Time Critical Care Time: No Discharge Plan Discharge Clinical Impression: Paronychia of great toe Patient Disposition: Home Condition: Stable Instructions: Antibiotic Form, Paronychia (ED) Additional Instructions: soak in warm tepid water with liquid dial soap or Hibiclens soap rinse and apply Mupriricin ointment and band-aide watch for increasing infection--redness, swelling, drainage Tylenol or Ibuprofen for any fever or pain per package instructions follow up with PCP in 7-10 days for a wound check recheck if develop fever, chills, increasing symptom Go to the ER if your symptoms become worse of if ANY new symptoms develop Antibiotic orally as prescribed take all doses till completed If your symptoms persist, change or worsen significantly before you can contact your personal physician then please, without delay, go to the emergency department for further evaluation. Follow-up with PCP in 7-10 days or sooner if needed Follow up with PCP soon in regards to your blood pressure which is elevated above threshold for referral. Blood pressure above 120/80 may indicate pre- hypertension. 140/88 Patient Language: Luxembourgish Prescriptions: New cephalexin 500 mg capsule 500 mg PO Q8H Qty: 21 0RF mupirocin [Centany] 2 % ointment 1 applic topical BID Qty: 22 0RF Rx Instructions: apply to nail bed of left great toe Follow-up/Referrals: Linda,AMY Webb [Primary Care Provider, Unknown] Time of Disposition: 18:33 Quality Serafin Coma Scale Eyes: Open Verbal: Oriented and Alert Motor: Follows Commands [place] Coma Total Score: 15
== END 2024-11-11 18:43 | disposition home or self-care (01) ==
PROVIDERS: Emergency Provider Registered Nurse; PCP Nurse Practitioner Family
DX: L03.032 Cellulitis of left toe (principal); F17.290 Nicotine dependence, other tobacco product, uncomplicated; J45.909 Unspecified asthma, uncomplicated; I27.20 Pulmonary hypertension, unspecified
CPT/HCPCS: 99213; G0463

== ENCOUNTER 2024-12-20 15:16 | Emergency (ER) | payer BC, SELFPAY ==
[2024-12-20 15:31] VITALS: BP 134/94; PULSE 80; RESP 20; TEMP 36.4; O2SAT 100
[2024-12-20 15:39] LABS: EDSTREPNEGPOS1 Negative (Negative)
--- NOTE | 2024-12-20 15:48 | ED.URI ---
HPI - URI/Sore Throat General Chief Complaint: Upper Respiratory Infection Stated Complaint: sore throat/congestion/tested positive covid Time Seen by Provider: 12/20/24 15:48 Source: patient Mode of arrival: ambulatory Limitations: no limitations History of Present Illness HPI Narrative: 39 yo F presents with sore throat, congestion, cough, fatigue, nausea and bodyaches for 2 days. Tested positive at home for covid. [facility] will not accept home covid test results. Pt also requesting strep test. all systems reviewed and negative except as noted above. Related Data Home Medications ?Medication ?Instructions ?Recorded ?Confirmed ?Last Taken ?Type alprazolam 0.5 mg tablet mg 12/20/24 Unknown History spironolactone 50 mg tablet mg 12/20/24 Unknown History Allergies Allergy/AdvReac Type Severity Reaction Status Date / Time No Known Allergies Allergy Verified 12/20/24 15:32 [facility] Past Medical History Medical History Asthma Achilles tendinitis of left lower extremity Calcaneus fracture, left Pulmonary hypertension Surgical History Surgical History H/O tubal ligation History of hip surgery right Family History Family History Father COPD (chronic obstructive pulmonary disease) Heart disease Hypertension Other Asthma Social History Social History Smoking packs per day: 0.5 Smoking cigarettes per day: 10.0 Years smoked: 12 Smoking pack-years: 6.00 Tobacco type: e-cigarettes/vaping Additional smoking assessment comments: quit cigarettes 6 months ago now vapes Alcohol use details: denies use Substance use: never Substance use type: does not use Living arrangements: with family Occupation/Education: occupation 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 There is no relevant family history pertinent to the presenting complaint. Exam Narrative: GENERAL: This is a well-nourished, well-developed patient, ill-appearing but in no acute distress HEAD: normocephalic, atraumatic. EYES: PERRL. Sclera clear/white. Vision is grossly intact. EARS: External ears normal, auditory canals clear and without drainage, TMs normal without perforation. Hearing grossly intact. NOSE: External nose normal with Clear nasal drainage THROAT: Mucous membranes moist, mild erythema to posterior pharynx without swelling or exudates NECK: Neck supple, non-tender without lymphadenopathy, masses or thyromegaly. CARDIOVASCULAR: Regular rate and rhythm without murmurs, gallops, or rubs. RESPIRATORY: Clear to auscultation. Breath sounds equal bilaterally. No wheezes, rales, or rhonchi. SKIN: warm, Dry, intact with no suspicious lesions or rash, good texture and turgor. NEURO: awake, alert, and oriented to person, place and time. There were no obvious focal neurologic abnormalities. EXTREMITIES: No joint tenderness, effusion, or edema noted. Course Course Level of Care: Express Care Visit Vital Signs Vital signs: Vital Signs Temperature 36.4 C L 12/20/24 15:31 Pulse Rate 80 12/20/24 15:31 Respiratory Rate 20 12/20/24 15:31 Blood Pressure 134/94 H 12/20/24 15:31 Pulse Oximetry 100 12/20/24 15:31 Oxygen Delivery Room Air 12/20/24 15:31 Temperature 36.4 C L 12/20/24 15:31 Pulse Rate 80 12/20/24 15:31 Respiratory Rate 20 12/20/24 15:31 Blood Pressure 134/94 H 12/20/24 15:31 Pulse Oximetry 100 12/20/24 15:31 Oxygen Delivery Room Air 12/20/24 15:31 reviewed MDM - URI/Sore Throat MDM Narrative Medical decision making narrative: positive COVID test. Recommend [id number] medications to treat viral symptoms. Lungs clear to auscultation. Patient is alert, nontoxic. Differential Diagnosis Differential diagnosis: Likely upper respiratory infection, sinusitis, viral infection, influenza and other ( COVID) Lab Data Labs: Lab Results 12/20/24 Range/Units 15:26 POC Grp A Strep Screen Negative (Negative) Discharge Plan Discharge Clinical Impression: COVID-19 Patient Disposition: Home Condition: Stable Instructions: COVID-19 (Coronavirus Disease 2019) (ED) Additional Instructions: your COVID test was positive today. COVID is a virus and symptoms may last 10-14 days. Taking [id number]-ijpfzvd medication to treat her symptoms such as DayQuil NyQuil cold and flu. Take as directed on packaging. Take ibuprofen every 6-8 hours as needed for pain and fever. Drink at least 64 oz water a day. Follow-up with your primary care physician if symptoms are not improving. If you are having chest pain or difficulty breathing go to the ER. Patient Language: Sinhala Prescriptions: New ondansetron 4 mg tablet,disintegrating 4 mg PO Q8H PRN (Reason: nausea and vomiting) Qty: 12 0RF No Action spironolactone 50 mg tablet alprazolam 0.5 mg tablet Follow-up/Referrals: Linda,AMY Webb [Primary Care Provider, Unknown] Stand Alone Forms: Work/School Release IP Time of Disposition: 15:54
[2024-12-20 15:59] LABS: EDCOVIDSCREEN Positive (Negative); EDINFLUASCREEN Negative (Negative); EDINFLUBSCREEN Negative (Negative)
== END 2024-12-20 16:00 | disposition home or self-care (01) ==
PROVIDERS: Emergency Provider Nurse Practitioner Family; PCP Nurse Practitioner Family
DX: U07.1 COVID-19 (principal); F17.290 Nicotine dependence, other tobacco product, uncomplicated; J45.909 Unspecified asthma, uncomplicated; I27.20 Pulmonary hypertension, unspecified
CPT/HCPCS: 87081; 87426; 87804; 87880; 99213; G0463

== ENCOUNTER 2025-01-02 18:28 | Emergency (ER) | payer BC, SELFPAY ==
[2025-01-02 18:38] VITALS: BP 134/84; PULSE 73; RESP 16; TEMP 36.4; O2SAT 100
--- NOTE | 2025-01-02 18:44 | ED_ITS ---
HPI - URI/Sore Throat General Chief Complaint: Upper Respiratory Infection Stated Complaint: Sore Throat Time Seen by Provider: 01/02/25 18:46 Source: patient and RN notes reviewed Mode of arrival: ambulatory Limitations: no limitations History of Present Illness HPI Narrative: 39-year-old female presents with concern for sore throat started suddenly last night, over the days she has developed nasal drainage, cough. She denies fever, body aches, chills, sweats. Reports painful swallowing. She has been taking Sudafed, DayQuil. MD elicited complaint: sore throat Related Data Home Medications ?Medication ?Instructions ?Recorded ?Confirmed ?Last Taken ?Type alprazolam 0.5 mg tablet mg 12/20/24 Unknown History spironolactone 50 mg tablet mg 12/20/24 Unknown Histo ry Allergies Allergy/AdvReac Type Severity Reaction Status Date / Time No Known Allergies Allergy Verified 01/02/25 18:41 Review of Systems Review of Systems: CONSTITUTIONAL: Denies malaise, chills, sweats, or fever. EYES: Denies visual changes, redness, or discharge. ENT: Reports rhinorrhea, congestion, sore throat. Denies sinus pain, otalgia CARDIOVASCULAR: Denies chest pain, palpitations, or edema. RESPIRATORY: Reports cough. Denies dyspnea. GASTROINTESTINAL: Denies abdominal pain, nausea, vomiting, diarrhea SKIN: Denies rash or itching. MUSCULOSKELETAL: Denies myalgia. NEUROLOGIC: Denies headache. All systems reviewed & are unremarkable except as noted in HPI and below PMFSH Past Medical History Medical History Asthma Achilles tendinitis of left lower extremity Calcaneus fracture, left Pulmonary hypertension Surgical History Surgical History H/O tubal ligation History of hip surgery right Family History Family History Father COPD (chronic obstructive pulmonary disease) Heart disease Hypertension Other Asthma Social History Social History Smoking packs per day: 0.5 Smoking cigarettes per day: 10.0 Years smoked: 12 Smoking pack-years: 6.00 Smoking status: Current every day smoker (vaping) Tobacco type: e-cigarettes/vaping Additional smoking assessment comments: quit cigarettes 6 months ago now vapes Alcohol use details: denies use Substance use: never Substance use type: does not use Living arrangements: with family Occupation/Education: occupation 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 There is no relevant family history pertinent to the presenting complaint Exam Narrative: GENERAL: Well-appearing, well-nourished, and in no acute distress. HEAD: Normocephalic EYES: PERRLA, conjunctivae clear ENT: Nares clear, clear discharge. Mucous membranes moist. TM pearly lal with sharp light reflex bilaterally; no tragal tenderness. Oropharynx not erythematous without lesions. Tonsils not enlarged and without exudate, no drooling, no hoarseness, no trismus, uvula midline. NECK: Supple. No lymphadenopathy CHEST: Clear to auscultation, breath sounds equal. No wheezing, rhonchi, rales, or stridor. No respiratory distress, speaks in full sentences. HEART: Regular rate and rhythm. No murmur heard. SKIN: Warm, dry, no rash. NEURO: Alert and oriented x3. PSYCH: Normal mood and affect Course Course Emergency Course: Patient is aware of diagnosis, understands and agrees to treatment plan. Anticipatory guidance given. Patient agrees to follow-up as directed and is aware of reasons to seek care at the emergency department. Portions of this record may have been created with voice recognition software Level of Care: Express Care Visit Vital Signs Vital signs: Vital Signs Temperature 97.5 F L 01/02/25 18:38 Pulse Rate 73 01/02/25 18:38 Respiratory Rate 16 01/02/25 18:38 Blood Pressure 134/84 01/02/25 18:38 Pulse Oximetry 100 01/02/25 18:38 Oxygen Delivery Room Air 01/02/25 18:38 Temperature 97.5 F L 01/02/25 18:38 Pulse Rate 73 01/02/25 18:38 Respiratory Rate 16 01/02/25 18:38 Blood Pressure 134/84 01/02/25 18:38 Pulse Oximetry 100 01/02/25 18:38 Oxygen Delivery Room Air 01/02/25 18:38 Reviewed. MDM - URI/Sore Throat MDM Narrative Medical decision making narrative: Differential diagnosis considered: Montero virus, strep pharyngitis, allergic rhinitis, upper respiratory tract infection, sinusitis, rhinosinusitis, nasopharyngitis. viral pharyngitis, otitis media, otitis externa, pneumonia, bronchitis, viral cough syndrome, viral syndrome, and influenza. Exam findings show no acute concerns or changes; patient is non-toxic appearing and is in no distress. Patient is appropriate for outpatient treatment and follow-up. Lab Data Attestation: I reviewed the patient's lab results. Critical Care Time Critical Care Time Critical Care Time: No Discharge Plan Discharge Clinical Impression: Upper respiratory infection Patient Disposition: Home Condition: Stable Instructions: Upper Respiratory Infection (ED) Additional Instructions: Your rapid strep swab was negative today at [facility]. A throat culture will be sent to the laboratory for further testing. If the test is positive, you will receive a phone call within 48 hours and an appropriate antibiotic will be initiated at that time. Your symptoms are likely due to a viral illness, which is not treated with antibiotics. Viral symptoms can be present for up to a few weeks. -Alternate Tylenol and Motrin per package directions for fever or pain. -Antihistamine medication such as Benadryl at night and Zyrtec during the day can help improve symptoms. -Eat and drink things that are easy to swallow, like tea or soup, or popsicles to suck on. -Oral rinses such as: Salt water gargles and/or may use topical anesthetic (eg. Chloraseptic spray) or lozenges to relieve dryness or throat pain). -Frequent hand washing or hand oyster tonger is one of the best ways to prevent spread of infection. -Follow up with primary care provider in 2-3 days if condition is not improving; or seek ER visit if you have trouble breathing, cannot drink enough fluids, have muffled voice, difficulty opening your mouth, or severe swelling. Patient Language: Georgian Prescriptions: New dextromethorphan-guaifenesin [Mucinex DM] 60-1,200 mg tablet extended release 12 hr 1 tablet PO Q12H Qty: 12 0RF Magic Mouthwash (Dr. Iyer) 120 mL suspension 10 ml PO Q4H PRN (Reason: pain) Qty: 120 0RF Rx Instructions: diphenhydramine 12.5 mg/5 mL oral elixir 40 mL; Lidocaine Viscous 2 % mucosal solution 40 mL; Maalox 200 mg-200 mg-20 mg/5 mL oral suspension 40 mL; Per 120 mL No Action spironolactone 50 mg tablet alprazolam 0.5 mg tablet ondansetron 4 mg tablet,disintegrating 4 mg PO Q8H PRN (Reason: nausea and vomiting) Qty: 12 0RF Follow-up/Referrals: Linda,AMY Webb [Primary Care Provider, Unknown] Time of Disposition: 18:55
[2025-01-02 18:59] LABS: EDSTREPNEGPOS1 Negative (Negative)
== END 2025-01-02 19:00 | disposition home or self-care (01) ==
PROVIDERS: Emergency Provider Nurse Practitioner; PCP Nurse Practitioner Family
DX: J06.9 Acute upper respiratory infection, unspecified (principal); F17.290 Nicotine dependence, other tobacco product, uncomplicated; J45.909 Unspecified asthma, uncomplicated; I27.20 Pulmonary hypertension, unspecified
CPT/HCPCS: 87081; 87880; 99213; G0463